=== PATIENT | female | born 1935 | race African-American/Black ===

== ENCOUNTER 2017-09-23 13:25 | Emergency (ER) | payer OTHER, MEDICAID ==
[~2017-09-23] VITALS: Ht 165.1 cm; Wt 69.0 kg
[~2017-09-23 13:25] MED LIST: GABAPENTIN; METFORMIN; THEOPHYLLINE
[2017-09-23] MEDS ORDERED: ALBUTEROL (0.083%) 2.5MG/3ML NEB HHN STA (16:45)
[2017-09-23] MEDS ORDERED: METHYLPREDNISOLONE SOD SUCC 125 MG/2 ML VIAL IV STA (16:45)
[2017-09-23 18:23] VITALS: BP 121/65
== END 2017-09-23 18:27 | disposition home or self-care (01) ==
LOC: ER 13:46
DX: J44.1 Chronic obstructive pulmonary disease with (acute) exacerbation (principal); R03.0 Elevated blood-pressure reading, without diagnosis of hypertension
CPT/HCPCS: 94640; 99283; J7611

== ENCOUNTER 2018-11-04 13:38 | Emergency (ER) | payer MEDICARE, MEDICAID ==
[~2018-11-04] VITALS: Ht 162.6 cm; Wt 65.0 kg
[2018-11-04] MEDS ORDERED: ALBUTEROL (0.083%) 2.5MG/3ML NEB HHN STA (17:36)
[2018-11-04] MEDS ORDERED: IPRATROPIUM BROMIDE (0.02%) 0.5MG/2.5ML NEB HHN STA (17:36)
[2018-11-04 19:00] VITALS: BP 180/100
== END 2018-11-04 19:34 | disposition home or self-care (01) ==
LOC: ER 13:38
DX: J44.1 Chronic obstructive pulmonary disease with (acute) exacerbation (principal); I10 Essential (primary) hypertension; E11.9 Type 2 diabetes mellitus without complications
CPT/HCPCS: 71045; 94640; 99283

== ENCOUNTER 2021-03-08 01:33 | Inpatient (IN) | payer OTHER, MEDICAID ==
[~2021-03-08] VITALS: Ht 162.6 cm; Wt 66.3 kg
[2021-03-08 03:32] LABS: HEMATOCRIT. 43.3 % (36.0-48.0); MEAN CORPUSCULAR HEMOGLOBIN 28.9 pg (28.0-32.0); MEAN CORPUSCULAR VOLUME 89.2 fL (81.0-99.0); MEAN PLATELET VOLUME 8.5 fl (7.4-10.4); PLATELET 99 x1000/uL (130-400); RED BLOOD CELL COUNT 4.86 mill/uL (4.2-5.4); RED CELL DISTRIBUTION WIDTH 15.8 % (11.6-14.6)
[2021-03-08 03:39] LABS: CHLORIDE 101 mEq/L (98-107)
[2021-03-08] MEDS ORDERED: ASPIRIN 325MG EC TABLET PO ONE (04:15)
[2021-03-08 11:57] LABS: PLATELET ESTIMATE DECREASED
[2021-03-08] MEDS ORDERED: ACETAMINOPHEN 325MG TABLET PO PRN (12:00)
[2021-03-08] MEDS ORDERED: MAGNESIUM/ALUMINUM HYDROXIDE/SIMETHICONE 30ML UDC PO PRN (12:00)
[2021-03-08] MEDS ORDERED: GUAIFENESIN 200MG/10ML SUGAR FREE UDC PO PRN (12:00)
[2021-03-08] MEDS ORDERED: HYDROCODONE/ACETAMINOPHEN 5/325MG TABLET PO PRN (12:00)
[2021-03-08] MEDS ORDERED: NA PHOS,M-B/NA PHOS,DI-BA ENEMA 118ML PR PRN (12:00)
[2021-03-08] MEDS ORDERED: DOCUSATE SODIUM 100MG CAPSULE PO PRN (12:00)
[2021-03-08] MEDS ORDERED: HYDRALAZINE 20MG/ML VIAL IV PRN (12:00)
[2021-03-08] MEDS ORDERED: ACETAMINOPHEN 650MG SUPP PR PRN (12:00)
[2021-03-08] MEDS ORDERED: LORAZEPAM 0.5MG TABLET PO PRN (12:00)
[2021-03-08] MEDS ORDERED: DIPHENHYDRAMINE 50MG/ML VIAL IV PRN (12:00)
[2021-03-08] MEDS ORDERED: ONDANSETRON HCL 4MG/2ML INJ IV PRN (12:00)
[2021-03-08] MEDS ORDERED: NALOXONE HCL 0.4MG/ML VIAL IV PRN (12:15)
[2021-03-08 12:17] LABS: BG BASE EXCESS 2.6 mmol/L (-2.0-2.0); BG CARBOXYHEMOGLOBIN 0.8 % (0.5-1.5); BG DEOXYHEMOGLOBIN 3.3 % (0.0-5.0); BG HCO3 ACT 26.3 mmol/L (22.0-26.0); BG METHEMOGLOBIN 0.1 % (0.0-1.5); BG OXYGEN SATURATION 96.7 % (92.0-98.5); BG OXYHEMOGLOBIN 95.8 % (94.0-97.0); BG PCO2 37.8 mmHg (35.0-45.0); BG PH 7.461 (7.350-7.450); BG PO2 83.7 mmHg (75.0-100.0); BG SAMPLE SITE RIGHT RADIAL; BG TOTAL HEMOGLOBIN 13.1 g/dL (12.0-18.0); BG VENT MODE ROOM AIR
[2021-03-08 12:25] LABS: NUCLEATED RED BLOOD CELLS 2 /100 WBC
[2021-03-08] MEDS: FAMOTIDINE 20MG/2ML VIAL IV SCH (12:45)
[2021-03-08] MEDS ORDERED: CEFTRIAXONE 1 G PREMIX 50 ML IV SCH (13:00)
[2021-03-08 13:07] LABS: INR 1.4; PROTHROMBIN TIME 14.4 sec (9.6-11.0)
[2021-03-08] MEDS ORDERED: BLOOD SUGAR DIAGNOSTIC STRIP TEST SCH (13:30)
[2021-03-08] MEDS ORDERED: DEXTROSE 50% WATER 50ML SYRINGE IV PRN (13:30)
[2021-03-08] MEDS: BLOOD SUGAR DIAGNOSTIC STRIP TEST SCH ×2 (17:00→22:56)
[2021-03-08] MEDS: INSULIN LISPRO 100 UNITS/ML SUBCUT SCH ×2 (18:20→22:58)
[2021-03-08] MEDS: IPRATROPIUM/ALBUTEROL 0.5-3(2.5)MG/3ML NEB HHN SCH (19:58)
[2021-03-08] MEDS: BUDESONIDE 0.5MG/2ML NEB HHN SCH (20:30)
[2021-03-08 20:47] LABS: CREATINE KINASE MB FRACTION 1.1 ng/mL (0.5-3.6)
[2021-03-08 22:00] VITALS: BP 129/70
[2021-03-08 22:05] VITALS: BP 129/70
[2021-03-08] MEDS: ENOXAPARIN 60MG/0.6ML SYR SUBCUT SCH (22:57)
[2021-03-09] VITALS (16 sets, daily range): BP systolic 104–180; BP diastolic 50–145
[2021-03-09 00:30] LABS: CREATINE KINASE MB FRACTION 1.5 ng/mL (0.5-3.6)
[2021-03-09] MEDS: IPRATROPIUM/ALBUTEROL 0.5-3(2.5)MG/3ML NEB HHN SCH ×2 (01:57→08:47)
[2021-03-09] MEDS: BLOOD SUGAR DIAGNOSTIC STRIP TEST SCH ×4 (05:52→21:58)
[2021-03-09] MEDS: INSULIN LISPRO 100 UNITS/ML SUBCUT SCH ×4 (07:20→21:00)
[2021-03-09 07:34] LABS: CHLORIDE 102 mEq/L (98-107)
[2021-03-09 07:41] LABS: HEPATITIS B SURFACE ANTIGEN NEGATIVE; LDL CHOLESTEROL 84 mg/dL (5-100)
[2021-03-09 07:42] LABS: HDL CHOLESTEROL 10 mg/dL (40-59)
[2021-03-09 07:44] LABS: T4 FREE 1.33 ng/dL (0.76-1.46)
[2021-03-09] MEDS: BUDESONIDE 0.5MG/2ML NEB HHN SCH ×2 (08:47→21:22)
[2021-03-09] MEDS ORDERED: ASPIRIN 81MG EC TABLET PO SCH (09:00)
[2021-03-09] MEDS ORDERED: ENOXAPARIN 30MG/0.3ML SYR SUBCUT SCH (09:00)
[2021-03-09] MEDS: FAMOTIDINE 20MG/2ML VIAL IV SCH (09:24)
[2021-03-09] MEDS: ENOXAPARIN 60MG/0.6ML SYR SUBCUT SCH ×2 (09:24→22:17)
[2021-03-09 09:25] LABS: HEMATOCRIT. 44.1 % (36.0-48.0); HEMOGLOBIN. 14.1 g/dL (12.0-16.0); MEAN CORPUSCULAR HEMOGLOBIN 28.5 pg (28.0-32.0); PLATELET 96 x1000/uL (130-400); RED BLOOD CELL COUNT 4.96 mill/uL (4.2-5.4); RED CELL DISTRIBUTION WIDTH 15.9 % (11.6-14.6)
[2021-03-09 11:58] LABS: CLARITY URINE TURBID (CLEAR); COLOR URINE DARK YELLOW (YELLOW); KETONES URINE 1+ (NEGATIVE); LEUKOCYTE ESTERASE URINE NEGATIVE (NEGATIVE); NITRITE URINE NEGATIVE (NEGATIVE); OCCULT BLOOD URINE TRACE (NEGATIVE); PH URINE 6.5 (4.5-8.0); PROTEIN URINE TRACE (NEGATIVE); SPECIFIC GRAVITY URINE 1.027 (1.005-1.030)
[2021-03-09] MEDS: DILTIAZEM HCL 30MG TABLET PO SCH ×2 (12:21→22:10)
[2021-03-09] MEDS: CEFTRIAXONE 1,000 MG in DEXTROSE 5% WATER 50 ML IV SCH (13:51)
[2021-03-09 20:14] LABS: PLATELET ESTIMATE DECREASED
[2021-03-09 20:24] LABS: INR 1.4; PROTHROMBIN TIME 14.2 sec (9.6-11.0)
[2021-03-09] MEDS: IPRATROPIUM/ALBUTEROL 0.5-3(2.5)MG/3ML NEB NEB PRN (21:21)
[2021-03-09 21:36] LABS: VITAMIN B12 SERUM 1002 pg/mL (211-911)
[2021-03-09] MEDS: ASPIRIN 325MG EC TABLET PO SCH (22:10)
[2021-03-09] MEDS: ATORVASTATIN CALCIUM 40MG TABLET PO SCH (22:10)
[2021-03-09] MEDS ORDERED: DILTIAZEM HCL 5MG/ML 5ML VIAL IV NR (22:45)
[2021-03-09] MEDS ORDERED: DILTIAZEM HCL 125 MG in DEXT 5% WATER 100 ML IV SCH (23:00)
[2021-03-10] VITALS (15 sets, daily range): BP systolic 109–148; BP diastolic 62–85
[2021-03-10] MEDS: DILTIAZEM HCL 30MG TABLET PO SCH ×3 (06:00→21:17)
[2021-03-10] MEDS: BLOOD SUGAR DIAGNOSTIC STRIP TEST SCH ×4 (06:34→21:07)
[2021-03-10 07:18] LABS: HEMATOCRIT. 37.7 % (36.0-48.0); HEMOGLOBIN. 12.1 g/dL (12.0-16.0); MEAN CORPUSCULAR HEMOGLOBIN 28.3 pg (28.0-32.0); MEAN PLATELET VOLUME 8.9 fl (7.4-10.4); PLATELET 103 x1000/uL (130-400); RED BLOOD CELL COUNT 4.29 mill/uL (4.2-5.4); RED CELL DISTRIBUTION WIDTH 15.9 % (11.6-14.6)
[2021-03-10] MEDS: INSULIN LISPRO 100 UNITS/ML SUBCUT SCH ×4 (07:20→21:00)
[2021-03-10 07:57] LABS: CHLORIDE 104 mEq/L (98-107)
[2021-03-10] MEDS ORDERED: LIDOCAINE HCL 1% 20ML VIAL (Pyxis) INJ ONE (08:36)
[2021-03-10] MEDS: BUDESONIDE 0.5MG/2ML NEB HHN SCH ×2 (09:16→21:05)
[2021-03-10] MEDS: ASPIRIN 325MG EC TABLET PO SCH (09:37)
[2021-03-10] MEDS: FAMOTIDINE 20MG/2ML VIAL IV SCH (09:37)
[2021-03-10] MEDS: ENOXAPARIN 60MG/0.6ML SYR SUBCUT SCH ×2 (09:37→21:07)
[2021-03-10] MEDS: FLUCONAZOLE 100MG TABLET PO SCH (11:13)
[2021-03-10 11:41] LABS: BG BASE EXCESS 4.8 mmol/L (-2.0-2.0); BG CARBOXYHEMOGLOBIN 0.7 % (0.5-1.5); BG DEOXYHEMOGLOBIN 1.3 % (0.0-5.0); BG FRACTION INSPIRED OXYGEN 28; BG HCO3 ACT 28.9 mmol/L (22.0-26.0); BG METHEMOGLOBIN 0.3 % (0.0-1.5); BG OXYGEN SATURATION 98.7 % (92.0-98.5); BG OXYHEMOGLOBIN 97.7 % (94.0-97.0); BG PCO2 41.1 mmHg (35.0-45.0); BG PH 7.465 (7.350-7.450); BG PO2 115.7 mmHg (75.0-100.0); BG SAMPLE SITE RIGHT RADIAL; BG TOTAL HEMOGLOBIN 12.1 g/dL (12.0-18.0); BG VENT MODE NASAL CANNULA
[2021-03-10] MEDS ORDERED: DILTIAZEM HCL 125 MG in DEXT 5% WATER 100 ML IV SCH (12:00)
[2021-03-10] MEDS ORDERED: IOHEXOL-350 100 ML BOTTLE ONE (14:41)
[2021-03-10] MEDS: CEFTRIAXONE 1,000 MG in DEXTROSE 5% WATER 50 ML IV SCH (15:35)
[2021-03-10] MEDS: SILDENAFIL CITRATE 20MG TABLET PO SCH ×2 (15:36→21:16)
[2021-03-10] MEDS: ATORVASTATIN CALCIUM 40MG TABLET PO SCH (21:16)
[2021-03-10 22:12] LABS: NUCLEATED RED BLOOD CELLS 1 /100 WBC; PLATELET ESTIMATE DECREASED
[2021-03-11] VITALS (11 sets, daily range): BP systolic 116–145; BP diastolic 49–84
[2021-03-11] MEDS: BLOOD SUGAR DIAGNOSTIC STRIP TEST SCH ×4 (05:56→21:43)
[2021-03-11] MEDS: SILDENAFIL CITRATE 20MG TABLET PO SCH ×3 (05:56→21:42)
[2021-03-11] MEDS: INSULIN LISPRO 100 UNITS/ML SUBCUT SCH ×4 (07:20→21:00)
[2021-03-11 08:04] LABS: HEMATOCRIT. 35.5 % (36.0-48.0); HEMOGLOBIN. 11.5 g/dL (12.0-16.0); MEAN CORPUSCULAR HEMOGLOBIN 28.8 pg (28.0-32.0); MEAN CORPUSCULAR VOLUME 88.5 fL (81.0-99.0); MEAN PLATELET VOLUME 8.4 fl (7.4-10.4); PLATELET 131 x1000/uL (130-400); RED BLOOD CELL COUNT 4.01 mill/uL (4.2-5.4); RED CELL DISTRIBUTION WIDTH 15.9 % (11.6-14.6)
[2021-03-11 08:23] LABS: CHLORIDE 104 mEq/L (98-107)
[2021-03-11] MEDS ORDERED: DILTIAZEM HCL 120MG CAPSULE CD 24HR PO SCH (09:00)
[2021-03-11] MEDS: ASPIRIN 81MG EC TABLET PO SCH (09:08)
[2021-03-11] MEDS: FAMOTIDINE 20MG/2ML VIAL IV SCH (09:08)
[2021-03-11] MEDS: FLUCONAZOLE 100MG TABLET PO SCH (09:09)
[2021-03-11] MEDS: ENOXAPARIN 60MG/0.6ML SYR SUBCUT SCH ×2 (09:10→21:43)
[2021-03-11] MEDS: CEFTRIAXONE 1,000 MG in DEXTROSE 5% WATER 50 ML IV SCH (13:59)
[2021-03-11] MEDS ORDERED: DILTIAZEM HCL 60MG TABLET PO SCH (14:00)
[2021-03-11 14:27] LABS: NUCLEATED RED BLOOD CELLS 2 /100 WBC
[2021-03-11 14:28] LABS: PLATELET ESTIMATE NORMAL
[2021-03-11] MEDS: IPRATROPIUM/ALBUTEROL 0.5-3(2.5)MG/3ML NEB NEB PRN (20:13)
[2021-03-11] MEDS: BUDESONIDE 0.5MG/2ML NEB HHN SCH (20:13)
[2021-03-11] MEDS: ATORVASTATIN CALCIUM 40MG TABLET PO SCH (21:40)
[2021-03-12] VITALS (10 sets, daily range): BP systolic 115–140; BP diastolic 55–97
[2021-03-12] MEDS: SILDENAFIL CITRATE 20MG TABLET PO SCH ×3 (05:43→22:18)
[2021-03-12] MEDS: BLOOD SUGAR DIAGNOSTIC STRIP TEST SCH ×4 (06:45→21:00)
[2021-03-12 06:49] LABS: HEMATOCRIT. 34.8 % (36.0-48.0); HEMOGLOBIN. 11.3 g/dL (12.0-16.0); MEAN CORPUSCULAR HEMOGLOBIN 28.6 pg (28.0-32.0); MEAN CORPUSCULAR VOLUME 88.3 fL (81.0-99.0); MEAN PLATELET VOLUME 8.2 fl (7.4-10.4); PLATELET 141 x1000/uL (130-400); RED BLOOD CELL COUNT 3.95 mill/uL (4.2-5.4)
[2021-03-12 06:52] LABS: CHLORIDE 103 mEq/L (98-107)
[2021-03-12] MEDS: INSULIN LISPRO 100 UNITS/ML SUBCUT SCH ×4 (07:19→21:00)
[2021-03-12] MEDS: IPRATROPIUM/ALBUTEROL 0.5-3(2.5)MG/3ML NEB NEB PRN (08:27)
[2021-03-12] MEDS: BUDESONIDE 0.5MG/2ML NEB HHN SCH ×2 (08:27→21:52)
[2021-03-12] MEDS ORDERED: DILTIAZEM HCL 60MG TABLET PO SCH (09:00)
[2021-03-12] MEDS: ASPIRIN 81MG EC TABLET PO SCH (09:44)
[2021-03-12] MEDS: FLUCONAZOLE 100MG TABLET PO SCH (09:44)
[2021-03-12] MEDS: FAMOTIDINE 20MG/2ML VIAL IV SCH (09:44)
[2021-03-12] MEDS: ENOXAPARIN 60MG/0.6ML SYR SUBCUT SCH ×2 (09:46→22:17)
[2021-03-12] MEDS: CEFTRIAXONE 1,000 MG in DEXTROSE 5% WATER 50 ML IV SCH (14:47)
[2021-03-12] MEDS: DILTIAZEM HCL 60MG TABLET PO SCH (17:54)
[2021-03-12] MEDS: ATORVASTATIN CALCIUM 40MG TABLET PO SCH (22:17)
[2021-03-13] VITALS (12 sets, daily range): BP systolic 93–135; BP diastolic 47–94
[2021-03-13] MEDS: DILTIAZEM HCL 60MG TABLET PO SCH ×4 (00:02→18:05)
[2021-03-13] MEDS: SILDENAFIL CITRATE 20MG TABLET PO SCH ×3 (06:00→21:37)
[2021-03-13] MEDS: INSULIN LISPRO 100 UNITS/ML SUBCUT SCH ×4 (06:03→21:00)
[2021-03-13] MEDS: BLOOD SUGAR DIAGNOSTIC STRIP TEST SCH ×4 (06:03→21:50)
[2021-03-13 07:06] LABS: HEMATOCRIT. 31.6 % (36.0-48.0); HEMOGLOBIN. 10.3 g/dL (12.0-16.0); MEAN CORPUSCULAR HEMOGLOBIN 28.9 pg (28.0-32.0); MEAN PLATELET VOLUME 8.6 fl (7.4-10.4); PLATELET 140 x1000/uL (130-400); RED BLOOD CELL COUNT 3.55 mill/uL (4.2-5.4); RED CELL DISTRIBUTION WIDTH 16.2 % (11.6-14.6)
[2021-03-13 08:12] LABS: CHLORIDE 104 mEq/L (98-107)
[2021-03-13] MEDS: BUDESONIDE 0.5MG/2ML NEB HHN SCH ×2 (08:39→21:44)
[2021-03-13 09:19] LABS: PLATELET ESTIMATE NORMAL
[2021-03-13] MEDS: ENOXAPARIN 60MG/0.6ML SYR SUBCUT SCH (09:31)
[2021-03-13] MEDS: FLUCONAZOLE 100MG TABLET PO SCH (09:31)
[2021-03-13] MEDS: FAMOTIDINE 20MG/2ML VIAL IV SCH (09:31)
[2021-03-13] MEDS: ASPIRIN 81MG EC TABLET PO SCH (09:31)
[2021-03-13] MEDS ORDERED: POTASSIUM CHLORIDE 20MEQ/PACKET PO SCH (10:15)
[2021-03-13 11:00] LABS: CREATINE KINASE 24 IU/L (26-192)
[2021-03-13 11:01] LABS: CREATINE KINASE MB FRACTION < 1.0 ng/mL (0.5-3.6)
[2021-03-13 11:46] LABS: TOTAL IRON BINDING CAPACITY 256 ug/dL (250-450)
[2021-03-13 15:53] LABS: BG BASE EXCESS 5.9 mmol/L (-2.0-2.0); BG CARBOXYHEMOGLOBIN 0.4 % (0.5-1.5); BG DEOXYHEMOGLOBIN 1.5 % (0.0-5.0); BG FRACTION INSPIRED OXYGEN 28; BG HCO3 ACT 30.4 mmol/L (22.0-26.0); BG METHEMOGLOBIN 0.2 % (0.0-1.5); BG OXYGEN SATURATION 98.5 % (92.0-98.5); BG OXYHEMOGLOBIN 97.9 % (94.0-97.0); BG PCO2 44.1 mmHg (35.0-45.0); BG PH 7.457 (7.350-7.450); BG PO2 111.8 mmHg (75.0-100.0); BG SAMPLE SITE RIGHT BRACHIAL; BG TOTAL HEMOGLOBIN 11.5 g/dL (12.0-18.0); BG VENT MODE NASAL CANNULA
[2021-03-13 17:39] LABS: PLATELET ESTIMATE NORMAL
[2021-03-13] MEDS: FERROUS SULFATE 325MG TABLET PO SCH (18:04)
[2021-03-13] MEDS: IPRATROPIUM/ALBUTEROL 0.5-3(2.5)MG/3ML NEB NEB PRN (21:44)
[2021-03-13] MEDS: ATORVASTATIN CALCIUM 40MG TABLET PO SCH (21:51)
[2021-03-13] MEDS: ENOXAPARIN 80MG/0.8ML SYR SUBCUT SCH (21:51)
[2021-03-14] VITALS (12 sets, daily range): BP systolic 93–140; BP diastolic 31–100
[2021-03-14] MEDS: SILDENAFIL CITRATE 20MG TABLET PO SCH ×3 (06:45→21:52)
[2021-03-14] MEDS: DILTIAZEM HCL 60MG TABLET PO SCH ×4 (06:45→18:27)
[2021-03-14] MEDS: INSULIN LISPRO 100 UNITS/ML SUBCUT SCH ×4 (06:45→21:00)
[2021-03-14] MEDS: FERROUS SULFATE 325MG TABLET PO SCH ×3 (06:45→18:27)
[2021-03-14] MEDS: BLOOD SUGAR DIAGNOSTIC STRIP TEST SCH ×4 (06:45→21:12)
[2021-03-14 06:54] LABS: HEMATOCRIT. 32.1 % (36.0-48.0); HEMOGLOBIN. 10.4 g/dL (12.0-16.0); MEAN CORPUSCULAR HEMOGLOBIN 28.5 pg (28.0-32.0); MEAN CORPUSCULAR VOLUME 88.1 fL (81.0-99.0); MEAN PLATELET VOLUME 8.4 fl (7.4-10.4); PLATELET 161 x1000/uL (130-400); RED BLOOD CELL COUNT 3.64 mill/uL (4.2-5.4); RED CELL DISTRIBUTION WIDTH 15.9 % (11.6-14.6)
[2021-03-14 06:58] LABS: CHLORIDE 105 mEq/L (98-107)
[2021-03-14] MEDS: ASPIRIN 81MG EC TABLET PO SCH (08:49)
[2021-03-14] MEDS: FAMOTIDINE 20MG/2ML VIAL IV SCH (08:49)
[2021-03-14] MEDS: FLUCONAZOLE 100MG TABLET PO SCH (08:49)
[2021-03-14] MEDS: ENOXAPARIN 80MG/0.8ML SYR SUBCUT SCH ×2 (08:50→21:53)
[2021-03-14] MEDS: BUDESONIDE 0.5MG/2ML NEB HHN SCH ×2 (09:01→21:29)
[2021-03-14 20:23] LABS: PLATELET ESTIMATE NORMAL
[2021-03-14] MEDS: IPRATROPIUM/ALBUTEROL 0.5-3(2.5)MG/3ML NEB NEB PRN (21:29)
[2021-03-14] MEDS: ATORVASTATIN CALCIUM 40MG TABLET PO SCH (21:52)
[2021-03-15] VITALS (10 sets, daily range): BP systolic 102–152; BP diastolic 50–83
[2021-03-15] MEDS: DILTIAZEM HCL 60MG TABLET PO SCH ×4 (00:20→18:23)
[2021-03-15] MEDS: SILDENAFIL CITRATE 20MG TABLET PO SCH ×3 (05:11→21:43)
[2021-03-15] MEDS: INSULIN LISPRO 100 UNITS/ML SUBCUT SCH ×4 (06:36→21:00)
[2021-03-15] MEDS: BLOOD SUGAR DIAGNOSTIC STRIP TEST SCH ×4 (06:36→21:44)
[2021-03-15] MEDS: BUDESONIDE 0.5MG/2ML NEB HHN SCH ×2 (07:46→20:45)
[2021-03-15] MEDS: FAMOTIDINE 20MG/2ML VIAL IV SCH (09:03)
[2021-03-15] MEDS: ASPIRIN 81MG EC TABLET PO SCH (09:03)
[2021-03-15] MEDS: ENOXAPARIN 80MG/0.8ML SYR SUBCUT SCH ×2 (09:03→21:42)
[2021-03-15] MEDS: FERROUS SULFATE 325MG TABLET PO SCH ×3 (09:03→18:23)
[2021-03-15] MEDS: FLUCONAZOLE 100MG TABLET PO SCH (09:03)
[2021-03-15] MEDS: ATORVASTATIN CALCIUM 40MG TABLET PO SCH (21:43)
[2021-03-16] VITALS (12 sets, daily range): BP systolic 114–154; BP diastolic 62–108
[2021-03-16] MEDS: DILTIAZEM HCL 60MG TABLET PO SCH ×4 (01:03→18:12)
[2021-03-16] MEDS: SILDENAFIL CITRATE 20MG TABLET PO SCH ×3 (05:58→21:18)
[2021-03-16] MEDS: INSULIN LISPRO 100 UNITS/ML SUBCUT SCH ×4 (06:37→21:19)
[2021-03-16] MEDS: BLOOD SUGAR DIAGNOSTIC STRIP TEST SCH ×4 (06:37→21:10)
[2021-03-16] MEDS: ASPIRIN 81MG EC TABLET PO SCH (08:17)
[2021-03-16] MEDS: FERROUS SULFATE 325MG TABLET PO SCH ×3 (08:17→18:11)
[2021-03-16] MEDS: FAMOTIDINE 20MG/2ML VIAL IV SCH (08:17)
[2021-03-16] MEDS: ENOXAPARIN 80MG/0.8ML SYR SUBCUT SCH ×2 (08:18→21:18)
[2021-03-16] MEDS: IPRATROPIUM/ALBUTEROL 0.5-3(2.5)MG/3ML NEB NEB PRN (08:53)
[2021-03-16] MEDS: BUDESONIDE 0.5MG/2ML NEB HHN SCH ×2 (08:53→20:29)
[2021-03-16 12:40] LABS: HEMOGLOBIN. 10.7 g/dL (12.0-16.0); MEAN CORPUSCULAR HEMOGLOBIN 29.5 pg (28.0-32.0); MEAN CORPUSCULAR VOLUME 88.3 fL (81.0-99.0); MEAN PLATELET VOLUME 7.9 fl (7.4-10.4); PLATELET 218 x1000/uL (130-400); RED BLOOD CELL COUNT 3.62 mill/uL (4.2-5.4); RED CELL DISTRIBUTION WIDTH 16.2 % (11.6-14.6)
[2021-03-16 12:59] LABS: CHLORIDE 106 mEq/L (98-107)
[2021-03-16 20:41] LABS: PLATELET ESTIMATE NORMAL
[2021-03-16] MEDS: ATORVASTATIN CALCIUM 40MG TABLET PO SCH (21:17)
[2021-03-17] VITALS (13 sets, daily range): BP systolic 113–150; BP diastolic 59–98
[2021-03-17] MEDS: DILTIAZEM HCL 60MG TABLET PO SCH ×4 (00:05→18:02)
[2021-03-17] MEDS: INSULIN LISPRO 100 UNITS/ML SUBCUT SCH ×4 (06:31→20:38)
[2021-03-17] MEDS: BLOOD SUGAR DIAGNOSTIC STRIP TEST SCH ×4 (06:31→20:38)
[2021-03-17] MEDS: SILDENAFIL CITRATE 20MG TABLET PO SCH ×3 (06:34→20:43)
[2021-03-17] MEDS: FERROUS SULFATE 325MG TABLET PO SCH ×3 (06:35→18:01)
[2021-03-17] MEDS: ENOXAPARIN 80MG/0.8ML SYR SUBCUT SCH ×2 (08:40→20:42)
[2021-03-17] MEDS: FAMOTIDINE 20MG/2ML VIAL IV SCH (08:41)
[2021-03-17] MEDS: ASPIRIN 81MG EC TABLET PO SCH (08:41)
[2021-03-17] MEDS ORDERED: POTASSIUM CHLORIDE 20MEQ/PACKET PO NR (09:00)
[2021-03-17 13:00] LABS: HEMATOCRIT. 33.1 % (36.0-48.0); HEMOGLOBIN. 10.7 g/dL (12.0-16.0); MEAN CORPUSCULAR HEMOGLOBIN 28.4 pg (28.0-32.0); MEAN CORPUSCULAR VOLUME 88.2 fL (81.0-99.0); PLATELET 239 x1000/uL (130-400); RED BLOOD CELL COUNT 3.75 mill/uL (4.2-5.4)
[2021-03-17 13:08] LABS: CHLORIDE 105 mEq/L (98-107)
[2021-03-17] MEDS: BUDESONIDE 0.5MG/2ML NEB HHN SCH (20:28)
[2021-03-17] MEDS: ATORVASTATIN CALCIUM 40MG TABLET PO SCH (20:42)
[2021-03-18 11:36] LABS: PLATELET ESTIMATE NORMAL
== END 2021-03-17 23:33 | DRG 64 ==
LOC: ER 01:33 → 3WST 06:57 → SUPCPDRO 11:48 → EDBEDREQSVC 20:06 → EDBEDREQTM 20:06 → ENRESERV 20:11
PROVIDERS: ADMIT Internal Medicine; ATTEND Internal Medicine
PROC: 4A10X4Z Monitoring of Central Nervous Electrical Activity, External Approach (ICD-10-PCS; principal; 2021-03-10)
PROC: 02HV33Z Insertion of Infusion Device into Superior Vena Cava, Percutaneous Approach (ICD-10-PCS; 2021-03-10)
PROC: B548ZZA Ultrasonography of Superior Vena Cava, Guidance (ICD-10-PCS; 2021-03-10)
DX: I63.9 Cerebral infarction, unspecified (principal); I26.99 Other pulmonary embolism without acute cor pulmonale; I50.33 Acute on chronic diastolic (congestive) heart failure; G93.41 Metabolic encephalopathy; S02.831A Fracture of medial orbital wall, right side, initial encounter for closed fracture; I82.432 Acute embolism and thrombosis of left popliteal vein; D68.9 Coagulation defect, unspecified; E72.20 Disorder of urea cycle metabolism, unspecified; E87.1 Hypo-osmolality and hyponatremia; I48.92 Unspecified atrial flutter; N39.0 Urinary tract infection, site not specified; D69.6 Thrombocytopenia, unspecified; E11.9 Type 2 diabetes mellitus without complications; I27.81 Cor pulmonale (chronic); I49.3 Ventricular premature depolarization; J44.9 Chronic obstructive pulmonary disease, unspecified; I11.0 Hypertensive heart disease with heart failure; I27.29 Other secondary pulmonary hypertension; I70.0 Atherosclerosis of aorta; M25.78 Osteophyte, vertebrae; M43.12 Spondylolisthesis, cervical region; M43.13 Spondylolisthesis, cervicothoracic region; M48.02 Spinal stenosis, cervical region; Z20.822 Contact with and (suspected) exposure to COVID-19; R29.6 Repeated falls; E80.6 Other disorders of bilirubin metabolism; R74.01 Elevation of levels of liver transaminase levels; G90.8 Other disorders of autonomic nervous system; R00.0 Tachycardia, unspecified; I48.0 Paroxysmal atrial fibrillation; W18.39XA Other fall on same level, initial encounter; D50.9 Iron deficiency anemia, unspecified; D72.825 Bandemia; Z79.899 Other long term (current) drug therapy; Y93.89 Activity, other specified; Y92.89 Other specified places as the place of occurrence of the external cause; Y99.8 Other external cause status; R26.89 Other abnormalities of gait and mobility
CPT/HCPCS: 36415; 36600; 70486; 70551; 71045; 71275; 72141; 76700; 76937; 80048; 80053; 80061; 80198; 81003; 82140; 82375; 82550; 82553; 82607; 82805; 82962; 83036; 83540; 83550; 83735; 83880; 84439; 84443; 84484; 85025; 85044; 86705; 86709; 86803; 87340; 87426; 92610; 93005; 93306; 93970; 94640; 95816; 97162; 99285; C1725; J0696; J1650; J1815; J3490; J7060; J7626; Q9967